=== PATIENT | female | born 1965 | race Caucasian/White ===

== ENCOUNTER 2025-03-22 13:57 | Emergency (ER) | payer BC, SELFPAY ==
[2025-03-22] VITALS (8 sets, daily range): BP systolic 101–139; BP diastolic 62–91; PULSE 71–105; RESP 14–18; TEMP 36.7–37; O2SAT 93–99; BMI 30.9
--- NOTE | 2025-03-22 | XR_ITS ---
Examination: MRI of brain without intravenous contrast. MRI brain with intravenous contrast. Date and time of exam:March 22, 2025 at 1828 hours INDICATIONS: Altered mental status today, left frontal mass on CT brain study today Technique: Multiple axial and sagittal images of the brain to been obtained. Siemens high-resolution 1.52 Michelle short bore scanner utilized. Sagittal sections, T1 weighted images, TR 500, TE 14, are performed. Axial sections proton-density and T2-weighted images have been obtained. Inversion recovery axial images, TR 9260, TE 111, TR 2500. Diffusion weighted images, axial sections, TR 4800, TE 128, B value 1000. Axial sections, ADC map, TR 4800, TE 128. Axial and coronal images were also obtained post 16 cc gadolinium administered intravenously. Findings:: Enlargement of the sella turcica is not present. The optic chiasm and infundibular stalk are not remarkable. There is no localized enlargement of the medulla or endy. Fourth ventricle and cerebellar tonsils appear normal in position. No subacute area of hemorrhage density is seen. Fourth ventricle is midline. Mass in the cerebellopontine angle region is not evident. 7th and 8th nerve complexes exhibit symmetry Globes are symmetrical Orbital musculature including medial lateral rectus muscles do not exhibit abnormality Increased white matter signal is evident, edema significant in the left frontal lobe with shift of the anterior cerebral arteries to the right, FLAIR and age 10 Effacement of the cortical sulcal markings is not identified. Mass effect upon the ventricular system is not identified. 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
--- NOTE | 2025-03-22 14:00 | PC.NURSE ---
NO STROKE ALERT PER [employer]
--- NOTE | 2025-03-22 14:03 | PD.EDRME ---
Rapid Medical Screening Exam RME Arrival date/time: 03/22/25 13:57 Chief Complaint: Altered Mental Status RME Narrative: 59-year-old female brought in from home by EMS. EMS report patient was treated at another facility earlier today and diagnosed with UTI. She came in after she had a possible syncopal related fall and altered mental status. EMS report patient was hypotensive on scene with a blood pressure of 60/43, she is receiving bolus of lactated Ringer's now. Her blood pressure improved to 114/81. She has no open wounds or falls. No unilateral weakness.
--- NOTE | 2025-03-22 14:04 | XR_ITS ---
Examination: CT brain head without contrast. 2-D sagittal coronal reconstructions Date and time of exam:March 22, 2025 1414 hours INDICATIONS: Onset altered mental status today CTDI: vol (mGy):50.6 DLP: (mGycm):1019 Technique: Multiple CT axial sections of the brain have been obtained, 5 mm slice thickness. Contrast has not been administered. 2-D sagittal, coronal reconstructions have been obtained Low dose protocols were performed. One or more of the following dose reduction techniques were used; automated exposure control, adjustment of the mA and/or KV according to patient size, use of iterative reconstruction technique. Findings: No significant ventricular enlargement. Left frontal temporal parietal craniotomy defect Low density in the left frontal lobe with more caudad serpiginous calcifications Ventricular peritoneal shunt tube tip between the frontal horns with no significant ventricular enlargement Fourth ventricle midline IMPRESSION: Subtle low-density probable edema in the left frontal lobe with poorly defined serpiginous calcifications in the left subfrontal region. Differential would include brain neoplasm such as oligodendroglioma, recommend brain MRI follow-up, pre and postcontrast
--- NOTE | 2025-03-22 14:04 | EKG_ITS ---
[facility] Test Date: 2025-03-22 Pat Name: VIRGILIO SHETTY Department: Room: - Gender: Female [employer]: : 1965 Requested By: Erica Salgado Order Number: [id number] Reading MD: Erica Salgado Measurements Intervals Foster Rate: 71 P: 3 GA: 146 QRS: 39 QRSD: 83 T: 30 QT: 402 QTc: 439 Interpretive Statements SINUS RHYTHM No previous ECG available for comparison /store/S0/[id number]/ecg/[id number].pdf
--- NOTE | 2025-03-22 14:15 | EDNOTE_ITS ---
Altered Mental Status RME/HPI General Chief Complaint: Altered Mental Status Stated Complaint: AMS Time Seen by Provider: 03/22/25 14:05 Arrival date/time: 03/22/25 13:57 Limitations: no limitations RME / HPI RME / HPI narrative: 59-year-old female brought in from home by EMS. EMS report patient was treated at another facility earlier today and diagnosed with UTI. She came in after she had a possible syncopal related fall and altered mental status. EMS report patient was hypotensive on scene with a blood pressure of 60/43, she is receiving bolus of lactated Ringer's now. Her blood pressure improved to 1 . She has no open wounds or falls. No unilateral weakness. DR. LIU MAIN ED EVALUATION: 59 year old female presents to the Emergency Department [facility] from home with complaint of a syncopal episode. Per , they were at home and then the patient had a syncopal episode. Per , the patient was treated at another facility and diagnosed with an UTI. Today, patient was hypotensive with a blood pressure of 60/43 initially. Related Data Home Medications ?Medication ?Instructions ?Recorded ?Confirmed cephalexin 500 mg capsule mg 03/22/25 desmopressin 0.1 mg tablet mg 03/22/25 hydrocortisone 10 mg tablet mg 03/22/25 levothyroxine 112 mcg tablet mcg 03/22/25 ondansetron HCl 4 mg/5 mL oral 8 mg PO BID 03/22/25 solution Allergies Allergy/AdvReac Type Severity Reaction Status Date / Time egg Allergy Verified 03/22/25 21:24 Review of Systems Review of Systems Systems Reviewed: All systems reviewed, normal except as documented Past Medical History Social History SMOKING STATUS: Current some day smoker ED Exam General Limitations: Present no limitations General appearance: Present alert and in no apparent distress Head Head exam: Present atraumatic, normocephalic and normal inspection Eye Eye exam: Present normal appearance, PERRL and EOMI ENT ENT exam: Present normal exam, normal oropharynx and mucous membranes moist Neck Neck exam: Present normal inspection, full ROM and trachea midline Chest Chest inspection: Present normal inspection and symmetric chest wall rise Respiratory Respiratory exam: Present normal lung sounds bilaterally Cardiovascular Cardiovascular exam: Present regular rate, normal rhythm and normal heart sounds Abdominal Exam Abdominal exam: Present soft and normal bowel sounds Extremities Exam Extremities exam: Present normal inspection and full ROM Back Exam Back exam: Present normal inspection and full ROM Neurological Exam Neurological exam: Present alert, oriented X3 and CN II-XII intact Psychiatric Psychiatric exam: Present normal affect and normal mood Skin Skin exam: Present warm, dry, intact and normal color Course Quality Measures none Orders Category Date Time Status Bedside Blood Glucose NOW Care 03/22/25 14:38 Completed EKG (ED ONLY) *Do not use* NOW Care 03/22/25 14:05 Completed MRI Screening NOW Care 03/22/25 15:11 Completed Transfer to another facility [Transfer/Discharge] Stat Discharge 03/22/25 20:[address] head/brain wo con Stat Exams 03/22/25 14:04 Completed EKG (ED Only) Stat Exams 03/22/25 14:04 Draft MR head/brain wo/w con Stat Exams 03/22/25 Completed BNP [B-Type Natriuretic Peptide] Stat Lab 03/22/25 15:42 Completed CBC Stat Lab 03/22/25 15:42 Completed CMP [Comprehensive Metabolic Panel] Stat Lab 03/22/25 15:42 Completed PT [Prothrombin Time with INR] Stat Lab 03/22/25 15:42 Completed Troponin I Stat Lab 03/22/25 15:42 Completed UA [Urinalysis] Stat Lab 03/22/25 17:54 Completed Sodium Chloride 0.9% 1000 ml [Ns] 1,000 ml Med 03/22/25 15:08 Discontinued IV 999 mls/hr cefTRIAXone [Rocephin] 2 gm Med 03/22/25 15:08 Discontinued SODIUM CHLORIDE 0.9% (Popper) [Ns 0.9% (P)] 50 ml IV X1 Vital Signs Vital signs: Vital Signs Temperature 98.0 F 03/22/25 14:10 Pulse Rate 85 03/22/25 14:10 Respiratory Rate 18 03/22/25 14:10 Blood Pressure 108/91 H 03/22/25 14:10 Pulse Oximetry (%) 95 03/22/25 14:10 Oxygen Delivery Method Room Air 03/22/25 14:10 PROCEDURES: Smoking Cessation Time Spent Discussing Smoking Cessation w/Patient (min): 3 Patient Acknowledges Need for Cessation: Yes Additional Comments: The patient was counseled as to the multiple risks to their health from continued use of tobacco products. It was explained that continuing to smoke may lead to multiple short and senior care negative health consequences, including but not limited to mouth/esophageal/lung cancer, COPD, and heart disease. The patient states they understand these risks, and also understand the options and resources available to them to help them stop smoking. Nicotine replacement therapy, local hotlines, and local resources were discussed as viable options for helping them stop their tobacco use. The total time spent counseling the patient regarding tobacco cessation was 3 minutes. Altered Mental Status MDM Narrative MDM Narrative:: I, Lise Gray, am scribing for and in the presence of Dr. Liu. Patient data External records reviewed:: [facility] previous records and EMS form Clinical information provided by:: patient and EMS Social determinants that could affect healthcare access:: other (specify) (current smoker) Patient has the following chronic illnesses:: Hypothyroidism. How is presenting disease/condition affected by chronic disease/condition?: uneffected by Evaluation data The following diagnostics were reviewed and interpreted by me:: lab results, radiology exam(s) and EKG tracing(s) (My interpretation: EKG performed at 1504 hours, sinus rhythm, rate 71, no acute changes, no STEMI ) Lab and/or radiology exams considered but not ordered:: none Interpretation Summary: Procedure(s): CT head/brain wo con Accession Number(s): [id number] cc: Fletcher Radford MD; Erica Hill PA-C~ Examination: CT brain head without contrast. 2-D sagittal coronal reconstructions Date and time of exam:March 22, 2025 1414 hours INDICATIONS: Onset altered mental status today CTDI: vol (mGy):50.6 DLP: (mGycm):1019 Technique: Multiple CT axial sections of the brain have been obtained, 5 mm slice thickness. Contrast has not been administered. 2-D sagittal, coronal reconstructions have been obtained Low dose protocols were performed. One or more of the following dose reduction techniques were used; automated exposure control, adjustment of the mA and/or KV according to patient size, use of iterative reconstruction technique. Findings: No significant ventricular enlargement. Left frontal temporal parietal craniotomy defect Low density in the left frontal lobe with more caudad serpiginous calcifications Ventricular peritoneal shunt tube tip between the frontal horns with no significant ventricular enlargement Fourth ventricle midline IMPRESSION: Subtle low-density probable edema in the left frontal lobe with poorly defined serpiginous calcifications in the left subfrontal region. Differential would include brain neoplasm such as oligodendroglioma, recommend brain MRI follow-up, pre and postcontrast Dictated By: Fletcher Radford MD Medications / Prescriptions Medications or Prescriptions considered but not ordered:: none Medication administrations:: Medication Administration History Discontinued Medications Sodium Chloride (Ns) 1,000 mls @ 999 mls/hr IV .Q1H1M ONE Stop: 03/22/25 16:08 Last Infusion: 03/22/25 16:50 Dose: Infused Documented By: Admin: 03/22/25 15:49 Dose: 999 mls/hr Documented By: DB Ceftriaxone Sodium 2 gm/ (Sodium Chloride) 50 mls @ 100 mls/hr IV X1 ONE Stop: 03/22/25 15:37 Last Infusion: 03/22/25 16:20 Dose: Infused Documented By: Admin: 03/22/25 15:49 Dose: 100 mls/hr Documented By: CHELSY see above if any Consultations Consultation(s) initiated? (list below): No Diagnosis Differential diagnosis altered mental status: delirium, hypoglycemia and other (UTI, dehydration, syncope, TIA) Most likely diagnosis given after review of the tests above:: No official diagnoses at this time, still pending diagnostic tests. Patient signout to the mine shifter provider. Admission Indicated Admission indicated?: not indicated Explain why admission is indicated or not indicated:: No final disposition plan at this time, still pending diagnostic tests. Patient signout to the mine shifter provider. Admission Request Was there a request for admission?: No Disposition Plan Disposition Plan: other (specify) (Signed out to Dr. Poole, pending MRI.) Discharge Plan Plan Patient Disposition: [facility] Facility Pt Being Transferred to: [place] Service Needed for Transfer: Neurosurgery Prescriptions/Referrals Prescriptions/Med Rec: No Action cephalexin 500 mg capsule hydrocortisone 10 mg tablet Patient Comments: TAKE 1 TABLET BY MOUTH TWICE DAILY levothyroxine 112 mcg tablet Patient Comments: TAKE 1 TABLET BY MOUTH ONCE DAILY desmopressin 0.1 mg tablet Patient Comments: TAKE 1 TABLET BY MOUTH TWICE DAILY ondansetron HCl 4 mg/5 mL solution 8 mg PO BID Referrals: No Primary/Family,Physician [Primary Care Provider] - In 1 week Problem List Clinical Impression: Brain mass Patient/Caregiver Discharge Instructions Print Language: Yakut Stand Alone Forms: Patricia Award Info., Patient Portal Info Letter
[2025-03-22] MEDS: SODIUM CHLORIDE 0.9% 1000 ML 1,000 ML 999 ML IV (15:49)
[2025-03-22] MEDS: cefTRIAXone 2 GM in SODIUM CHLORIDE 0.9% (Popper) 50 ML IV (15:49)
[2025-03-22 15:53] LABS: Basophils # (Auto) 0.1 Thou/mm3 (0.0-0.2); Basophils % (Auto) 1 % (0-2.5); Eosinophils # (Auto) 0.1 Thou/mm3 (0.0-0.5); Eosinophils % (Auto) 1 % (0-10); Hematocrit 42.6 % (36.0-46.0); Hemoglobin 14.2 g/dL (12.0-16.0); Immature Granulocytes Auto 0.03 Thou/mm3 (0.00-0.00); Lymphocytes # (Auto) 2.0 Thou/mm3 (1.0-4.8); Lymphocytes % (Auto) 25 % (10-50); Mean Corpuscular HGB Conc 33.3 g/dl (31.0-37.0); Mean Corpuscular Hemoglobin 28.4 pg (25.0-35.0); Mean Corpuscular Volume 85 fL (80-100); Monocytes # (Auto) 0.6 Thou/mm3 (0.0-0.8); Monocytes % (Auto) 8 % (0-12); Neutrophils # (Auto) 5.0 Thou/mm3 (1.8-7.7); Neutrophils % (Auto) 64 % (37-80); Nucleated Red Blood Cell # 0.00 Thou/mm3 (0.00-0.00); Nucleated Red Blood Cell % 0 /100 WBC (0); Platelet Count 348 Thou/mm3 (140-440); RDW Standard Deviation 42.5 fL (36.4-46.3); Red Blood Count 5.00 Miln/mm3 (4.00-5.20); White Blood Count 7.8 Thou/mm3 (3.6-11.0)
[2025-03-22 16:19] LABS: INR 1.0 (0.9-1.3); Prothrombin Time 11.4 Seconds (9.0-12.2)
[2025-03-22 16:22] LABS: B-Type Natriuretic Peptide < 20 pg/mL (0-100)
[2025-03-22 16:26] LABS: Alanine Aminotransferase 37 U/L (10-49); Albumin, Serum 4.3 gm/dL (3.5-5.0); Albumin/Globulin Ratio 1.4 (1.2-2.2); Alkaline Phosphatase 99 U/L (46-116); Anion Gap 7 (7-16); Aspartate Amino Transferase 58 U/L (0-34); BUN/Creatinine Ratio 5 Ratio (12-20); Bilirubin,Total 0.3 mg/dL (0.3-1.2); Blood Urea Nitrogen < 5 mg/dL (9-23); Calcium 9.7 mg/dL (8.3-10.6); Calcium (Corrected) 9.7 mg/dL (8.5-10.1); Carbon Dioxide 25.7 mMol/L (20.0-31.0); Chloride 106 mMol/L (98-107); Creatinine (Component) 1.1 mg/dL (0.6-1.3); Estimated Creatinine Clearance 56.9 mL/min (>60); Globulin 3.0 gm/dL (2.3-3.5); Glucose 76 mg/dL (74-106); Osmolality,Calculated 273 (275-295); Potassium 4.6 mMol/L (3.4-5.1); Sodium 139 mMol/L (136-145); Total Protein 7.3 gm/dL (5.7-8.2); Troponin I < 0.020 ng/mL (0.0-0.045); eGFR 58 See Note
--- NOTE | 2025-03-22 18:05 | EDNOTE_ITS ---
Emergency Room Addendum <Melania Renee - Last Filed: 03/22/25 21:52> Addendum Narrative: I took over the care from previous shift physician, Dr. Murphy, at 6 PM on 03/22/2025. See previous notes for complete H & P and ED course. Asked me to review the final MRI report. My review of the brain MRI report is: Mass contiguous with the sphenoid ridge and the lower portion of the anterior cerebral falx, measuring at least 6.4 x 3.8 x 3.1 cm. There is shift of the frontal horns to the right 4 mm. Abnormal enhancement extends to the lower left temporal lobe. 1958: I discussed the case with [facility] about the presentation, exam, diagnostics and treatments here. And need of further care in their hospital. Patient had brain mass removed by Dr. Khan, their neurosurgeon, in the past. 2020: Discussed the case with Dr. Ching, from [facility], about the presentation, exam, diagnostics and treatments here. And need of further care in their hospital. Dr. Ching accepts the patient for transfer. Lance Poole MD <Lance Poole MD - Last Filed: 03/22/25 23:38> Addendum Narrative: I took over the care from previous shift physician, Dr. Murphy, at 6 PM on 03/22/2025. See previous notes for complete H & P and ED course. Asked me to review the final MRI report. My review of the brain MRI report is: Mass contiguous with the sphenoid ridge and the lower portion of the anterior cerebral falx, measuring at least 6.4 x 3.8 x 3.1 cm. There is shift of the frontal horns to the right 4 mm. Abnormal enhancement extends to the lower left temporal lobe. Discussed the case with Dr. Ching, from [facility], about the p resentation, exam, diagnostics and treatments here. And need of further care in their hospital. Dr. Ching accepts the patient for transfer. During my watch, patient remained stable. Lance Poole MD
[2025-03-22 18:06] LABS: Collection Type, Urine Voided
[2025-03-22 18:17] LABS: Bilirubin,Urine Negative (Negative); Blood,Urine Negative (Negative); Clarity,Urine Clear (Clear/Hazy); Color,Urine Lt-Yellow (Lt Yel-Yel); Glucose, Urine Negative (Negative); Ketones,Urine Negative (Negative); Leukocyte Esterase,Urine Positive (Negative); Nitrite,Urine Negative (Negative); PH,Urine 6.0 (5.0-7.0); Protein,Urine Negative (Neg - Trace); RBC,Urine 4 /hpf (0-3); Specific Gravity,Urine 1.023 (1.001-1.035); Squamous Epithelial Cell,Urine 3 /hpf (0-5); Urobilinogen,Urine Negative mg/dL (0.0-1.0); WBC,Urine 16 /hpf (0-5)
--- NOTE | 2025-03-22 20:01 | PC.NURSE ---
[facility] CALLED AT THIS TIME SPOKE TO JENNI. DR. PRASAD SPEAKING TO [facility] AT THIS TIME.
--- NOTE | 2025-03-22 21:04 | PC.NURSE ---
NURSE TO NURSE REPORT GIVEN TO RN JOEL. PER RN THE BED IS NOT RELEASED YET. WE WILL CALL WHEN THE BED IS RELEASED. .
--- NOTE | 2025-03-22 21:31 | PC.NURSE ---
2122, accepted to [facility], room L532A, address: [address] [place] [address] , spoke to brent
--- NOTE | 2025-03-22 22:01 | PC.NURSE ---
PATIENT WAS ACCEPTED TO [facility] L[address] BY DR. ANGEL.
== END 2025-03-23 00:47 | disposition short-term general hospital (02) ==
PROVIDERS: Physician Assistant Medical; Emergency Provider Emergency Medicine
DX: G93.9 Disorder of brain, unspecified (principal)
CPT/HCPCS: 36415; 70450; 70553; 80053; 81001; 83880; 84484; 85025; 85610; 93005; 96365; 99285; A9579; J0696; J7030; J7050